=== PATIENT | male | born 1995 | race Caucasian/White ===

== ENCOUNTER 2017-05-17 15:31 | Emergency (ER) | payer OTHER ==
[~2017-05-17] VITALS: Ht 175.3 cm; Wt 63.6 kg
[~2017-05-17 15:31] MED LIST: FLUT16SP2 NS; METACYCLINE
[2017-05-17 15:38] VITALS: BP 143/87
--- NOTE | 2017-05-17 15:58 | PHYS DOC ---
General Chief Complaint: LACERATION/AVULSION Stated Complaint: HAND PROBLEM Time Seen by MD: 15:41 Source: patient, old records Exam Limitations: no limitations Problems: History of Present Illness Initial Comments Patient is a 21-year-old male who comes to the ED complaining of hand laceration. 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 He says that 2 hours ago while working he was carrying groceries to a customer's automobile and one of the back he was carrying had two glass jars inside. He says that as he was walking the bag began to tear and jars were displaced and they actually broke. At the same time the patient had put his left hand up to try to support the bottom of the bag and as he did so he suffered a laceration at the anterior aspect of his left ring finger. He washed the wound and applied a Band-Aid and thought symptoms were resolved. 2 hours later he went to change the Band-Aid and when he did so he had a small amount of bleeding again. He says he has never had any lacerations and became concerned so he came for evaluation. He denies numbness tingling or weakness or radiating symptoms, but jars were not shattered but in large glass fragments. He is normally healthy and his tetanus status is up-to-date. He has full range of motion of the left ring finger and says he came for evaluation "just to be sure everything was ok." Onset: other (2 hours ago) Severity: mild Pain/Injury Location: left 4th finger Method of Injury: incised Modifying Factors: improves with rest Allergies: Coded Allergies: No Known Drug Allergies (Unverified , 11/08/14) Past Medical History Medical History: other (seasonal allergies) Surgical History: no surgical history Social History Smoker: non-smoker Alcohol: none Drugs: none Review of Systems Constitutional: denies chills, denies fever, denies malaise Respiratory: denies cough, denies shortness of breath Cardiovascular: denies chest pain, denies palpitations, denies syncope Gastrointestinal: denies abdominal pain, denies diarrhea, denies nausea, denies vomiting Musculoskeletal: see HPI Skin: see HPI Psychiatric/Neurological: see HPI Physical Exam General Appearance: WD/WN, no apparent distress Cardiovascular/Respiratory: normal peripheral pulses, no respiratory distress Elbow/Forearm: normal inspection, non-tender, no evidence of injury, normal ROM Wrist: normal inspection, non-tender, no evidence of injury, normal ROM Hand: non-tender (anterior aspect of the proximal phalanx left fourth finger with 2 very small 1-2 mm abrasions. There is no bleeding there are no retained foreign bodies the wound is clean there are no wound edges to approximate. Ligaments and tendons are intact the extremity is neurovascularly intact.) Neurologic/Tendon: normal sensation, normal motor functions, normal tendon functions, responds to pain, no evidence tendon injury Psychiatric: alert, oriented x 3 Skin: warm/dry (left ring finger as above) Orders, Labs, Meds Wound was cleansed and dressed in the ED. No indication for further treatment, concern for infection as minimal. I discussed the treatment plan patient expressed agreement and understanding of same. Departure Time of Disposition: 15:56 Disposition: 01 HOME, SELF-CARE Diagnosis: left fourth finger abrasions Condition: GOOD Patient Instructions: Abrasion, [id number] Additional Instructions: [id number] Tylenol and/or ibuprofen as needed for discomfort. Elevate wound as tolerated, pressure dressing and elevation of the extremity with further rebleeding. Keep wound covered with sterile dressing until healed completely. Wash wound twice daily with soap and warm water, blot dry. Apply a sterile dressing after each wash. Follow-up with your doctor next week for recheck as needed. Return to the ED with new or changing symptoms. RUSS SENIOR DO May 17, 2017 15:58
== END 2017-05-17 16:03 | disposition home or self-care (01) ==
LOC: ER 15:31
DX: S60.415A Abrasion of left ring finger, initial encounter (principal); W25.XXXA Contact with sharp glass, initial encounter; Y93.01 Activity, walking, marching and hiking; Y99.8 Other external cause status; Y92.89 Other specified places as the place of occurrence of the external cause
CPT/HCPCS: 99283